=== PATIENT | male | born 1995 | race Caucasian/White ===

== ENCOUNTER → 2019-01-03 | Outpatient (CLI) | payer OTHER | LOC: COL.RAD 09:38 | DX: E34.8 Other specified endocrine disorders (principal); G25.2 Other specified forms of tremor | CPT/HCPCS: A9585 ==

== ENCOUNTER 2019-08-17 13:28 | Observation (INO) | payer OTHER ==
[~2019-08-17] VITALS: Ht 165.1 cm; Wt 55.0 kg
[2019-08-17] VITALS (9 sets, daily range): BP systolic 113–132; BP diastolic 67–75; PULSE 65–100; TEMP 98.1–101
[2019-08-17] MEDS ORDERED: INDERAL LA 60MG60 MG PO (13:55)
[2019-08-17 14:20] LABS: BASO # 0.1 (0.0-0.2); BASO % 0.4 % (0.0-2.0); EOS # 0.2 (0.0-0.7); GRAN # 13.8 (1.4-6.5); GRAN % 83.5 % (42.2-75.2); HEMATOCRIT 49.5 % (42.0-52.0); HEMOGLOBIN 16.6 g/dl (13.5-18.0); LYMPH # 1.2 (1.2-3.4); MEAN CELL VOLUME 92 fl (80.0-100.0); MEAN CORPUSCULAR HEMOGLOBIN 31 pg (27.0-31.0); MEAN CORPUSCULAR HGB CONC 34 g/dl (33.0-37.0); MEAN PLATELET VOLUME 9.8 fl (7.4-10.4); MONO # 1.3 (0.1-0.6); MONO % 7.7 % (1.7-9.3); PLATELET COUNT 241 K/mm3 (130-400); RED BLOOD COUNT 5.39 M/mm3 (4.20-5.60); REDCELL DISTRIBUTION WIDTH-CV 13.6 % (11.5-14.5)
[2019-08-17 14:26] LABS: ALBUMIN 5.2 gm/dL (3.5-5.0); CREATININE, serum 0.82 (0.66-1.25); TOTAL PROTEIN 9.1 gm/dL (6.4-8.2)
[2019-08-17 16:39] LABS: COLLECTION METHOD CLEAN CATCH
[2019-08-17 16:46] LABS: MUCOUS Present /lpf; PH 6 (5-8); SQUAMOUS EPITHELIAL None Seen /hpf; URINE APPEARANCE Clear; URINE BACTERIA None Seen /hpf; URINE BILIRUBIN Negative (NEGATIVE); URINE BLOOD Negative (NEGATIVE); URINE COLOR Straw; URINE GLUCOSE Negative (NEGATIVE); URINE KETONE 1+ (NEGATIVE); URINE LEUKOCYTE ESTERASE Negative (NEGATIVE); URINE NITRATE Negative (NEGATIVE); URINE PROTEIN(semi-quant) Negative (NEGATIVE); URINE RBC 0-2 /hpf; URINE UROBILINOGEN Negative (NEGATIVE)
--- NOTE | 2019-08-17 18:29 | NUR ---
Patient admitted to the floor around 1700 in preparation for a laparscopic appendectomy. Patient and mom oriented to his room and to the unit. Patient is a student at [employer]. 5 page, family history and suicide risk assessment completed. Consent signed for surgery. Patient to surgery around 1800. Patient and his mom voice no concerns regarding surgery at this time.
--- NOTE | 2019-08-17 19:45 | NUR ---
RECEIVED FROM PACU PER BED, POST LAP APPY. PT IS ALERT AND ORIENTED X4. MOM AT BEDSIDE. HAS IVF TO RIGHT AC WITHOUT REDNESS OR SWELLING. LAP SITES X3.
--- NOTE | 2019-08-17 23:06 | NUR ---
Pt up to bathroom, voids 200cc of yellow urine. Takes Motrin 600mg po now for mild rt incisional pain. Has eaten comor[place] fries and drank frozen soda without nausea or vomiting.
--- NOTE | 2019-08-18 00:25 | NUR ---
Patient complaining of incisional pain, medicated with [place] 5/325mg at this time. Patient out in hallway walking with his mom.
[2019-08-18 00:37] VITALS: BP 105/66; PULSE 87; TEMP 97.5
[2019-08-18 04:58] VITALS: BP 106/42; PULSE 53; TEMP 97.8
--- NOTE | 2019-08-18 05:08 | NUR ---
Patient awake, complains of abdominal pain 04/14. Medicated with [place] 1 tab at this time, voiding without problem.
--- NOTE | 2019-08-18 06:45 | NUR ---
appears to be dozing, awakens easily,bedside shift report received from EVA Ambrosio
--- NOTE | 2019-08-18 08:10 | NUR ---
awake resting in bed, full assessment completed, see interventions for further info
[2019-08-18 08:28] VITALS: BP 108/65; PULSE 54; TEMP 98.2
--- NOTE | 2019-08-18 09:20 | NUR ---
resting in bed after having had breakfast, will wait to go home until after seen by Dr Valdez and has a motel room ready to go to, denies needs at this time
--- NOTE | 2019-08-18 10:30 | NUR ---
resting in bed, c/o some queasiness to stomach but does not feel like he is going to throw up, medicated with zofran 4mg slow IV, encouraged to get up and ambulate in the [place]
--- NOTE | 2019-08-18 11:09 | NUR ---
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
--- NOTE | 2019-08-18 11:34 | NUR ---
states nausea is better since having Dr Courtney botello in to see patient
[2019-08-18 11:42] VITALS: BP 98/61; PULSE 54; TEMP 97.1
--- NOTE | 2019-08-18 12:40 | NUR ---
discharge instructions given to patient and his mom, verbalizes understanding
--- NOTE | 2019-08-18 12:50 | NUR ---
discharged ambulatory
== END 2019-08-18 12:50 | disposition home or self-care (01) ==
LOC: COL.ER 13:28 → SURG 16:23
PROVIDERS: Emergency Medicine; ADMIT Surgery
DX: K35.80 Unspecified acute appendicitis (principal); R25.1 Tremor, unspecified; Z79.899 Other long term (current) drug therapy
CPT/HCPCS: G0378; J0330; J0690; J1100; J1170; J1885; J2405; J2543; J2704; J2710; J3010; J7030; Q9967